=== PATIENT | male | born 1975 | race Caucasian/White ===

== ENCOUNTER 2024-07-06 07:52 | Inpatient (IN) | payer MEDICAID, SELFPAY ==
[2024-07-06] VITALS (16 sets, daily range): BP systolic 121–170; BP diastolic 75–98; PULSE 85–112; RESP 17–38; TEMP 36.4–37.1; O2SAT 91–96; BMI 32.5
--- NOTE | 2024-07-06 08:19 | ED_ITS ---
HPI - Chest Pain 2 General: Chief Complaint: Chest Pain Stated Complaint: sob CP Time Seen by Provider: 07/06/24 07:53 History of Present Illness: 49-year-old male presents emergency room complaining of right-sided pain that began last night around 2 AM today, he has been nauseous and had some vomiting denies any medic easy melena hematemesis coffee-ground emesis. Worsening takes a brief deep breath. No fevers sweats or chills she is mildly tachycardic with oxygen sats all normal. He is diabetic no history of coronary disease no previous abdominal surgeries. Associated symptoms: Reports abdominal pain, nausea and vomiting; Deny dyspnea or fever(s) Related Data Home Medications Medication Instructions Recorded Confirmed escitalopram oxalate 20 mg tablet 20 mg PO DAILY 07/06/24 07/06/24 dapagliflozin propanediol 10 mg 10 mg PO DAILY 07/07/24 07/07/24 tablet Allergies Allergy/AdvReac Type Severity Reaction Status Date / Time Sulfa (Sulfonamide Allergy ALGY-Hives Verified 05/31/23 14:58 Antibiotics) Review of Systems 2 Const: Denies: fever(s) or chills Card: Denies: chest pain Resp: Denies: dyspnea GI: Reports: abdominal pain, nausea and vomiting; Denies: hematemesis, hematochezia or melena : Denies: dysuria, urinary frequency or urinary urgency Musc: Denies: neck pain or back pain Skin/Breast: Denies: rash PFSH ED 2 PFSH: Medical History (Updated 07/09/24 @ 07:01 by Henry Wadsworth DO) Hx of type 2 diabetes mellitus Hx of hyperlipidemia History of anxiety Surgical History (Updated 07/08/24 @ 11:06 by Rosy Hickman MD) Hx of vasectomy 2005 Social History Smoking and tobacco/nicotine status: never used tobacco/nicotine Second hand smoke exposure: No Alcohol intake: never Substance/Drug Use: never Adopted: No Caregiver/support person: No Lives independently: Yes Household members: children Housing: House Marital status: Number of children: 1 Highest education level completed: Associate Degree: Occupational, Technical, Vocational Program service: No Current occupational status: employed Physical Exam 2 Const: GENERAL APPEARANCE: cooperative ORIENTATION/CONSCIOUSNESS: Yes awake, Yes oriented to person, Yes oriented to place and Yes oriented to time HENMT: COMMON NORMALS: normocephalic, atraumatic and hearing grossly normal bilaterally HEAD & SCALP: normocephalic and atraumatic Resp: COMMON NORMALS: No retractions and No use of accessory muscles EFFORT & INSPECTION: Yes tachypneic AUSCULTATION: rhonchi and wheezes Cardio: COMMON NORMALS: regular rate, regular rhythm and No murmurs present (Cardio) RATE: regular rate RHYTHM: regular rhythm GI: COMMON NORMALS: Soft to palpation and No hepatosplenomegaly present A USCULTATION: Yes normoactive bowel sounds PALPATION: Yes Soft to palpation, No Tenderness to palpation present (GI), No Guarding due to palpation present (GI) and Yes No hepatosplenomegaly present Extremity: COMMON NORMALS: normal to inspection, capillary refill normal, no clubbing, cyanosis or edema, no calf tenderness and no pedal edema Neuro: SENSORIUM/ORIENTATION: Yes oriented to person, Yes oriented to place and Yes oriented to time Skin: COMMON NORMALS: no rashes or lesions noted GENERAL SKIN EXAM: no rashes or lesions noted Course 2 Vital Signs: Vital signs: Vital Signs Temperature 98.6 F 07/09/24 04:00 Pulse Rate 86 07/09/24 04:57 Respiratory Rate 17 07/09/24 04:00 Blood Pressure 149/71 07/09/24 04:00 Pulse Oximetry 96 07/09/24 04:00 Oxygen Delivery Me thod Room Air 07/09/24 04:00 MDM - Chest Pain Medical Decision Making Patient presents tachycardic. EKG reviewed no acute ST changes noted. Chest x- ray shows pneumonia with pleural effusion CTA of the chest shows small abscess. No obvious abnormality. Patient has sepsis sepsis protocols initiated. Started on Vanco mycin and Zosyn. Discussed with hospitalist orders written Lab Data 07/09/24 04:02 07/09/24 04:02 Radiology Impressions Chest X-Ray 07/06/24 08:20 IMPRESSION: Jtit-ek-[id number] right lower lobe infiltrate, suggestive of pneumonia with a suspected small right pleural effusion Gallbladder Ultrasound 07/06/24 08:26 IMPRESSION: 1. No evidence of cholelithiasis. 2. Upper limits of normal common bile duct. Correlation with bilirubin levels is suggested. 3. Diffuse fatty infiltration of the liver Chest/Abdomen/Pelvis CT 07/06/24 08:59 IMPRESSION: 1. Moderate right middle lobe consolidation with a central loculated gas and fluid collection extending into the anterior right costophrenic angle. These findings are suspicious for pneumonia and pulmonary abscess however bronchogenic neoplasm cannot be excluded. Correlation with bronchoscopy or short-term follow-up CT of the chest is suggested 2. Mildly prominent right hilar and right superior mediastinal lymph nodes 3. Small non loculated right pleural effusion IMPRESSION: 1. Mild diffuse bladder wall thickening. Clinical and laboratory correlation is suggested to exclude cystitis 2. Fatty infiltration of the liver Chest Ultrasound 07/08/24 08:57 IMPRESSION: Very small RIGHT pleural effusion. Laboratory Results WBC 28.68 10^3/uL (3.29-11.43) H 07/06/24 08:25 RBC 4.74 10^6/uL (3.85-5.65) 07/06/24 08:25 Hgb 14.30 g/dL (11.27-16.99) 07/06/24 08:25 Hct 41.2 % (37-53) 07/06/24 08:25 MCV 86.9 fl (82-101) 07/06/24 08:25 MCH 30.2 pg (27-33) 07/06/24 08:25 MCHC 34.7 g/dL (30-55) 07/06/24 08:25 RDW 11.9 % (12.1-15.1) L 07/06/24 08:25 Plt Count 266 10^3/cmm (157-399) 07/06/24 08:25 MPV 9.0 fL (7.4-10.4) 07/06/24 08:25 Neut % (Auto) 87.9 % 07/06/24 08:25 Lymph % (Auto) 2.1 % 07/06/24 08:25 Miner % (Auto) 8.6 % 07/06/24 08:25 Eos % (Auto) 0.2 % 07/06/24 08:25 Baso % (Auto) 0.2 % 07/06/24 08:25 Neut # (Auto) 25.18 10^3/uL (1.8-7.7) H 07/06/24 08:25 Lymph # (Auto) 0.6 10^3/uL (0.8-4.8) L 07/06/24 08:25 Miner # (Auto) 2.5 10^3/uL (0.2-0.9) H 07/06/24 08:25 Eos # (Auto) 0.1 10^3/uL (0.0-0.8) 07/06/24 08:25 Baso # (Auto) 0.1 10^3/uL (0.0-0.1) 07/06/24 08:25 Nucleated RBC % (auto) 0 % 07/06/24 08:25 Nucleated RBCs # 0.0 /100WBC 07/06/24 08:25 Specimen Type Arterial 07/06/24 09:10 Sample Site Radial, right 07/06/24 09:10 ABG pH 7.42 (7.35-7.45) 07/06/24 09:10 ABG pCO2 34.4 mmHg (35-45) L 07/06/24 09:10 ABG pO2 70.1 mmHg (80.0-100.0) L 07/06/24 09:10 ABG PO2/FiO2 Ratio 333 07/06/24 09:10 ABG HCO3 22.2 mmol/L (22-26) 07/06/24 09:10 ABG O2 Saturation 94.5 07/06/24 09:10 ABG Base Excess -1.7 mmol/L (-2.0-2.0) 07/06/24 09:10 John Test Pos 07/06/24 09:10 A-a O2 Gradient 4.8 mmHg (5-10) L 07/06/24 09:10 Hematocrit 42.5 % (42-52) 07/06/24 09:10 Hgb O2 Saturation 92.2 % (95-100) L 07/06/24 09:10 Carboxyhemoglobin 1.4 %THgb (0.4-20.1) 07/06/24 09:10 Methemoglobin 1.1 % (0.4-1.5) 07/06/24 09:10 Total Hemoglobin 13.9 g/dL (14-18) L 07/06/24 09:10 Sodium 132.0 mmol/L (131-143) 07/06/24 09:10 Potassium 4.2 mmol/L (3.5-5.0) 07/06/24 09:10 Glucose 219.0 mg/dL (70-115) H 07/06/24 09:10 Ionized Calcium 1.1 mmol/L (1.1-1.4) 07/06/24 09:10 O2 Delivery Device Room air 07/06/24 09:10 FiO2 21.0 % 07/06/24 09:10 Public Information Specialist ID [place] 07/06/24 09:10 Sodium 130 mmol/L (136-145) L 07/06/24 08:25 Potassium 4.8 mmol/L (3.5-5.1) 07/06/24 08:25 Chloride 89 mmol/L (98-107) L 07/06/24 08:25 Carbon Dioxide 21 mmol/L (22-29) L 07/06/24 08:25 Anion Gap 24.8 (5-19) H 07/06/24 08:25 BUN 11 mg/dL (6-20) 07/06/24 08:25 Creatinine 0.8 mg/dL (0.7-1.2) 07/06/24 08:25 GFR Calculation 103.6 mL/min (90-130) 07/06/24 08:25 Glucose 264 mg/dL (65-115) H 07/06/24 08:25 Calculated Osmolality 279 mOsm/kg (285-295) L 07/06/24 08:25 Lactic Acid 2.5 mmol/L (0.5-2.2) H 07/06/24 08:25 Calcium 8.8 mg/dL (8.5-10.5) 07/06/24 08:25 Total Bilirubin 1.0 mg/dL (0.15-1.2) 07/06/24 08:25 AST 23 U/L (0-40) 07/06/24 08:25 ALT 36 U/L (0-41) 07/06/24 08:25 Alkaline Phosphatase 116 U/L (40-130) 07/06/24 08:25 Troponin T Baseline 13 ng/L (0-15) 07/06/24 08:25 Troponin T 120 Minute 12.43 ng/L (0-15) 07/06/24 10:02 Delta Troponin T -0.57 ABS# (0-10) L 07/06/24 10:02 C-Reactive Protein 166.5 mg/L (0.0-4.9) H 07/06/24 08:25 Total Protein 7.6 g/dL (6.6-8.7) 07/06/24 08:25 Albumin 3.9 g/dL (3.5-5.2) 07/06/24 08:25 Globulin 3.7 g/dL (1.3-4.6) 07/06/24 08:25 Serum Ketones Negative (Negative) 07/06/24 08:25 Coronavirus (PCR) Negative (Negative) 07/06/24 10:00 Influenza A (PCR) Negative (Negative) 07/06/24 10:00 Influenza Type B (PCR) Negative (Negative) 07/06/24 10:00 RSV (PCR) Negative (Negative) 07/06/24 10:00 All radiology interpretation(s) finalized by discharge Discharge Plan Discharge Patient Disposition: Admitted As Inpatient Admit Provider: Merlin Bains Clinical Impression: Community acquired pneumonia, Lung abscess, Sepsis Condition: Stable Coding Level of Care Code ED [employer] for Librado Nieto
--- NOTE | 2024-07-06 08:20 | ECG_ITS ---
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
--- NOTE | 2024-07-06 08:20 | XRR_ITS ---
PROCEDURE INFORMATION: Exam: XR Chest Exam date and time: 07/06/2024 8:31 AM Age: 49 years old Clinical indication: Chest pressure; Patient HX: Patient states that he started having nausea and vomiting last night, then he developed right sided chest pain and shortness of breath. Patient states that the pain is a 10 out of 10. He is having cold chills and he appears diaphoretic. Patient is alert and oriented, breathing is even and unlabored. TECHNIQUE: Imaging protocol: Radiologic exam of the chest. Views: 1 view. COMPARISON: No relevant prior studies available. FINDINGS: Lungs: There is a polw-yj-odrnukab right lower lobe infiltrate. Pleural spaces: There is a trace right pleural effusion. No pneumothorax is seen. Heart/Mediastinum: Unremarkable. No cardiomegaly. Bones/joints: Unremarkable. XR/XR chest 1V portable [id number] IMPRESSION: Enpj-zz-wjlthcmh right lower lobe infiltrate, suggestive of pneumonia with a suspected small right pleural effusion
--- NOTE | 2024-07-06 08:26 | USR_ITS ---
PROCEDURE INFORMATION: Exam: US Abdomen, Limited; Right Upper Quadrant Exam date and time: 07/06/2024 8:58 AM Age: 49 years old Clinical indication: Abdominal pain; Acute; Additional info: Ruq pain/biliary colic TECHNIQUE: Imaging protocol: Real time ultrasound of the abdomen with image documentation. Limited exam focused on the right upper quadrant. COMPARISON: No relevant prior studies available. FINDINGS: Liver: There is diffuse fatty infiltration of the liver. Gallbladder: Normal. No gallstones. There is no gallbladder wall thickening. Biliary ducts: The common bile duct measures 6 mm and is at the upper limits of normal. Pancreas: Visualized pancreas is unremarkable. Right kidney: Normal. No mass. No hydronephrosis. US/US gall bladder [id number] IMPRESSION: 1. No evidence of cholelithiasis. 2. Upper limits of normal common bile duct. Correlation with bilirubin levels is suggested. 3. Diffuse fatty infiltration of the liver
[2024-07-06 08:35] LABS: Basophils # 0.1 10^3/uL (0.0-0.1); Basophils % 0.2 %; Eosinophils # 0.1 10^3/uL (0.0-0.8); Eosinophils % 0.2 %; Hematocrit 41.2 % (37-53); Lymphocytes # 0.6 10^3/uL (0.8-4.8); Lymphocytes % 2.1 %; Mean Corpuscular HGB Conc 34.7 g/dL (30-55); Mean Corpuscular Hemoglobin 30.2 pg (27-33); Mean Corpuscular Volume 86.9 fl (82-101); Monocytes # 2.5 10^3/uL (0.2-0.9); Monocytes % 8.6 %; Neutrophils # 25.18 10^3/uL (1.8-7.7); Neutrophils % 87.9 %; Nucleated Red Blood Cells % 0 %; Platelet Count 266 10^3/cmm (157-399); Red Blood Count 4.74 10^6/uL (3.85-5.65); Red Cell Distribution Width 11.9 % (12.1-15.1); White Blood Count 28.68 10^3/uL (3.29-11.43)
[2024-07-06] MEDS: morphine 4 mg/mL SDV 1 mL IVP (08:43)
[2024-07-06] MEDS: sodium chloride 0.9% 1,000 ML 999 ML IV (08:44)
[2024-07-06] MEDS: ondansetron 2 mg/ML SDV 2 mL 4 MG IVP (08:44)
[2024-07-06 08:48] LABS: Alanine Aminotransferase 36 U/L (0-41); Albumin Level 3.9 g/dL (3.5-5.2); Alkaline Phosphatase 116 U/L (40-130); Aspartate Amino Transferase 23 U/L (0-40); Blood Urea Nitrogen 11 mg/dL (6-20); Calcium 8.8 mg/dL (8.5-10.5); Carbon Dioxide 21 mmol/L (22-29); Chloride 89 mmol/L (98-107); Creatinine Clr Calc Pharmacy 120.9814; Globulin 3.7 g/dL (1.3-4.6); Glomerular Filtration Rate 103.6 mL/min (90-130); Glucose 264 mg/dL (65-115); Osmolality Calculated 279 mOsm/kg (285-295); Sodium 130 mmol/L (136-145); Total Protein 7.6 g/dL (6.6-8.7)
[2024-07-06 08:49] LABS: Troponin(5th) Baseline 13 ng/L (0-15)
--- NOTE | 2024-07-06 08:59 | CTR_ITS ---
PROCEDURE INFORMATION: Exam: CTA Chest With Contrast Exam date and time: 07/06/2024 9:43 AM Age: 49 years old Clinical indication: Abdominal pain; Generalized; Chest pressure and chest wall pain and on breathing; Additional info: Chest/abd pain TECHNIQUE: Imaging protocol: Computed tomographic angiography of the chest with contrast. Exam focused on the arteries. 3D rendering (Not supervised by radiologist): MIP and/or 3D reconstructed images were created by the technologist. Radiation optimization: All CT scans at this facility use at least one of these dose optimization techniques: automated exposure control; mA and/or kV adjustment per patient size (includes targeted exams where dose is matched to clinical indication); or iterative reconstruction. Contrast material: OMNIPAQUE 350; Contrast volume: 100 ml; Contrast route: INTRAVENOUS (IV); COMPARISON: CR (CHEST, ) 07/06/2024 8:31 AM RADIATION DOSE METRICS: Total DLP (mGy-cm): 1905.04 FINDINGS: Pulmonary arteries: Normal. No pulmonary emboli. Aorta: Unremarkable. No aortic aneurysm. No aortic dissection. Lungs: There is a moderate area of consolidation within the right middle lobe with a central loculated gas and fluid collection with peripheral enhancement within the area of consolidation which measures 4.2 x 2.8 x 2.5 cm. There is also a loculated component of gas and fluid extending into the anterior right costophrenic sulcus. Pleural spaces: There is a small non loculated right pleural effusion. Heart: Unremarkable. No cardiomegaly. No pericardial effusion. Lymph nodes: There are mildly prominent right superior mediastinal and right hilar lymph nodes. A right paratracheal lymph node in the superior mediastinum measures 10 mm in short axis dimension as seen on series 10 image 77. A right hilar lymph node measures 1.6 cm in short axis dimension as seen on series 10, image 172. Bones/joints: Unremarkable. No acute fracture. Soft tissues: There is mild soft tissue thickening noted within the right hilum. PROCEDURE INFORMATION: Exam: CT Abdomen And Pelvis With Contrast Exam date and time: 07/06/2024 9:43 AM Age: 49 years old Clinical indication: Abdominal pain; Generalized; Chest pressure and chest wall pain and on breathing; Additional info: Chest/abd pain TECHNIQUE: Imaging protocol: Computed tomography of the abdomen and pelvis with contrast. Radiation optimization: All CT scans at this facility use at least one of these dose optimization techniques: automated exposure control; mA and/or kV adjustment per patient size (includes targeted exams where dose is matched to clinical indication); or iterative reconstruction. Contrast material: OMNIPAQUE 350; Contrast volume: 100 ml; Contrast route: INTRAVENOUS (IV); COMPARISON: US gall bladder [id number] 07/06/2024 8:58 AM RADIATION DOSE METRICS: Total DLP (mGy-cm): 1905.04 FINDINGS: Liver: There is diffuse fatty infiltration of the liver. No focal liver masses. Gallbladder and biliary ducts: Normal. No calcified stones. No ductal dilation. Pancreas: Normal. No ductal dilation. Spleen: The spleen is unremarkable. A small accessory splenic lobule is noted. Adrenal glands: Normal. No mass. Kidneys and ureters: Normal. No hydronephrosis. Stomach and bowel: Unremarkable. No obstruction. No mucosal thickening. Appendix: No evidence of appendicitis. Intraperitoneal space: Unremarkable. No free air. No significant fluid collection. Vasculature: Unremarkable. No abdominal aortic aneurysm. Lymph nodes: Unremarkable. No enlarged lymph nodes. Urinary bladder: The bladder is partially distended. There is mild diffuse bladder wall thickening. Reproductive: Unremarkable as visualized. Bones/joints: Unremarkable. No acute fracture. Soft tissues: There is a small fat containing left inguinal hernia. CT/CT angio chest w abd pel w con IMPRESSION: 1. Moderate right middle lobe consolidation with a central loculated gas and fluid collection extending into the anterior right costophrenic angle. These findings are suspicious for pneumonia and pulmonary abscess however bronchogenic neoplasm cannot be excluded. Correlation with bronchoscopy or short-term follow-up CT of the chest is suggested 2. Mildly prominent right hilar and right superior mediastinal lymph nodes 3. Small non loculated right pleural effusion IMPRESSION: 1. Mild diffuse bladder wall thickening. Clinical and laboratory correlation is suggested to exclude cystitis 2. Fatty infiltration of the liver
[2024-07-06 09:03] LABS: Anion Gap 24.8 (5-19); Potassium 4.8 mmol/L (3.5-5.1)
[2024-07-06 09:14] LABS: Ketone (Acetest) Serum Negative (Negative); Lactic Sepsis W/Reflex 2.5 mmol/L (0.5-2.2)
[2024-07-06 09:21] LABS: ABG PCO2 34.4 mmHg (35-45); ABG PH Result 7.42 (7.35-7.45); Alveolar-Arterial Oxygen Gradi 4.8 mmHg (5-10); Arterial Blood Gas Hematocrit 42.5 % (42-52); Base Excess ABG -1.7 mmol/L (-2.0-2.0); Blood Gas Allen Test Pos; Blood Gas Operator Identificat WALCI; Blood Gas Sample Site Radial, right; Blood Gas Sample Type Arterial; Carboxyhemoglobin 1.4 %THgb (0.4-20.1); HCO3 ABG 22.2 mmol/L (22-26); HGB O2 Sat 92.2 % (95-100); Ionized Calcium Level - ABG 1.1 mmol/L (1.1-1.4); Methemoglobin 1.1 % (0.4-1.5); Oxygen Device ROOM AIR; Oxygen Saturation ABG 94.5; PO2 ABG 70.1 mmHg (80.0-100.0); PO2 FiO2 Ratio Arterial Blood 333; Potassium Level - ABG 4.2 mmol/L (3.5-5.0); Total Hemoglobin 13.9 g/dL (14-18)
[2024-07-06] MEDS: piperacillin-tazobactam 3.375 GM in sodium chloride 0.9% (plus) 50 ML IV ×2 (09:54→20:47)
[2024-07-06] MEDS: iohexol 350 mg/mL 500 mL Btl (per mL) IV (09:57)
[2024-07-06 10:31] LABS: Troponin 5 2HR 12.43 ng/L (0-15)
[2024-07-06 10:33] LABS: Troponin 5 2HR Delta -0.57 ABS# (0-10)
[2024-07-06] MEDS: vancomycin 1,000 MG in sodium chloride 0.9% 250 ML 250 MG IV (10:39)
[2024-07-06 10:47] LABS: Covid PCR NEGATIVE (Negative); Influenza A NEGATIVE (Negative); Influenza B NEGATIVE (Negative); Respiratory Syncytial Virus Ce NEGATIVE (Negative)
[2024-07-06 10:51] LABS: Reflex Lactate Order REFLEX LACTIC ORDERD
[2024-07-06 11:34] LABS: Lactic Acid level (Lactate) 1.8 mmol/L (0.5-2.2)
[2024-07-06] MEDS: HYDROcodone-acetaminophen 5-325 mg Tablet 1 TAB PO (14:03)
[2024-07-06] MEDS: pantoprazole 40 mg SDV IVP (14:04)
[2024-07-06] MEDS: enoxaparin 40 mg/0.4 mL Syringe SUBCUT (14:04)
[2024-07-06] MEDS: sodium chloride 0.9% 1,000 ML 75 ML IV (14:09)
--- NOTE | 2024-07-06 14:20 | ECG_ITS ---
[facility] Test Date: 2024-07-06 Pat Name: Nitesh Naranjo Department: Room: Gender: Male [employer]: : 1975 Requested By: Henry Crouch Order Number: [id number] Reading MD: NINA GARCIA Measurements Intervals [place] Rate: 90 P: 46 [place]: 124 QRS: 18 QRSD: 95 T: 32 QT: 376 QTc: 462 Interpretive Statements SINUS RHYTHM Compared to ECG 07/06/2024 07:57:38 Sinus tachycardia no longer present Short [place] interval no longer present Electronically Signed On 07-07-2024 18:57:22 CDT by NINA GARCIA [email or web address] centerThe [email or web address] beachwood medical centerCar [email or web address]/store/[id number]
[2024-07-06 14:50] LABS: Troponin 5 6HR 12.93 ng/L (0-15)
[2024-07-06 14:51] LABS: Lactate (Lactic Acid level) 3.5 mmol/L (0.5-2.2)
[2024-07-06 14:53] LABS: Troponin 5 6HR Delta -0.07 ng/L (0-12)
--- NOTE | 2024-07-06 16:25 | P.HP_ITS ---
Providers/Chief Complaint 2 Admitting Physician: Merlin Bains DO Primary Care Provider: Sukumar Brooks MD Chief Complaint: sob CP History of Present Illness Nitesh Naranjo is a 49 year old male who presented to the ER today with complaints of right-sided chest pain, fever, chills, nausea/vomiting and fatigue. Patient states that very early in the morning he began feeling poorly. States that he was having fevers and chills, then began having nausea and vomiting. States he was unable to eat or drink much through the night. He says the last thing he had to eat was yesterday evening. He says that he was having a lot of right-sided chest pain, especially when he was taking a deep breath. 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 In the ER, he was noted to be extremely short of breath. He had an elevated respiratory rate as well as an elevated blood pressure. EKG showed sinus tachycardia with short WI interval. No ST-T changes. Chest x-ray did show mild to moderate right lower lobe infiltrate. A CTA of the chest abdomen and pelvis was obtained, with findings of moderate right middle lobe consolidation with a central loculated gas and fluid collection extending into the anterior right costophrenic angle. He had mild prominence of the right hilar region and the right superior mediastinal lymph nodes. In addition there was a small nonloculated right pleural effusion. Radiology felt that the consolidation was consistent with a pneumonia or a pulmonary abscess, but could not completely exclude malignancy. No pulmonary embolism was seen. Patient had also complained of some epigastric pain associated with the nausea, and a gallbladder ultrasound was obtained. There was no evidence of cholelithiasis, and the common bile duct was on the upper limits of normal. Fatty infiltration of the liver was also noted. Labs showed an elevated white count to 28,000. Sodium was low to 130. He had an elevation of his sugars to 264. Lactic acid was elevated to 2.5. Troponins were negative. Respiratory panel was negative for coronavirus, flu, RSV. Patient was admitted to [facility] for workup and treatment of pneumonia. Review of Systems 2 General: Reports: 10 or more systems reviewed and unremarkable except in HPI and below Medications/Allergies Home Medications Medication Instructions Recorded Confirmed Last Taken Type No Known Home Medications 08/02/23 08/02/23 Unknown History Allergies Allergy/AdvReac Type Severity Reaction Status Date / Time Sulfa (Sulfonamide Allergy ALGY-Hives Verified 05/31/23 14:58 Antibiotics) PFSH Acute 2 PFSH: Social History Smoking and tobacco/nicotine status: never used tobacco/nicotine Second hand smoke exposure: No Alcohol intake: never Substance/Drug Use: never Adopted: No Caregiver/support person: No Lives independently: Yes Household members: children Housing: House Marital status: Number of children: 1 Highest education level completed: Associate Degree: Occupational, Technical, Vocational Program service: No Current occupational status: employed Vitals/I&O/Wt Last Vital Signs Temp 97.6 F 07/06/24 16:10 Pulse 90 07/06/24 16:10 Resp 17 07/06/24 16:10 BP 127/78 07/06/24 16:10 Pulse Ox 91 07/06/24 16:10 O2 Del Method Room Air 07/06/24 16:10 07/06/24 07/06/24 07/06/24 06:59 14:59 22:59 Intake Total 4048.78 / 4048.78 Balance 4048.78 / 4048.78 Weight last 48 hrs Weight 202 lb Physical Exam 2 Narrative: General: Cooperative patient in in moderate respiratory distress. HEENT: Normocephalic, Atraumatic. External ears normal. Nasal passages patent without drainage. MMM. Heart: RRR. Resp: Coarse crackles best heard on the right middle lobe. In addition there were fine Rales present bibasilar. Abd: Soft, Non-distended. Mild epigastric tenderness is noted to palpation. Extremities: No edema. Skin: No rash or lesions on exposed areas. Data 07/06/24 08:25 07/06/24 08:25 Micro: Microbiology 07/06/24 10:02 Blood Culture - Preliminary Blood SPECIMEN COLLECTED 07/06/24 10:00 Blood Culture - Preliminary Blood SPECIMEN COLLECTED A&P Assessment and plan (1) Sepsis: Qualifiers: Sepsis type: sepsis due to unspecified organism Sepsis acute organ dysfunction status: with acute organ dysfunction Severe sepsis acute organ dysfunction type: acute respiratory failure Acute respiratory failure type: w ith hypoxia Severe sepsis shock status: without septic shock Qualified Code(s): A41.9 - Sepsis, unspecified organism; R65.20 - Severe sepsis without septic shock; J96.01 - Acute respiratory failure with hypoxia (2) Community acquired pneumonia: Qualifiers: Laterality: right Lung location: middle lobe of lung Qualified Code(s): J18.9 - Pneumonia, unspecified organism (3) Lung abscess: Qualifiers: Pulmonary abscess pneumonia presence: with pneumonia Laterality: right Lung location: middle lobe of lung Qualified Code(s): J85.1 - Abscess of lung with pneumonia (4) Neutrophilic leukocytosis: (5) Hyponatremia: (6) Hyperglycemia: Plan 49-year-old male admitted for right middle lobe pneumonia and probable lung abscess. Admit to med/surg for close inpatient monitoring. WBC count up to 28,000, hyponatremia 130, elevated glucose to 264 on admission. CTA, chest x-ray showed right middle lobe consolidation with possible lung abscess and right pleural effusion. Patient with likely sepsis given his hypoxic presentation, elevated white count, findings on CT consistent with infection/pneumonia. Received vancomycin and Zosyn in the ER. We will continue these antibiotics. Blood cultures are pending. Blood pressures are stable at this time. No indications of septic shock. Lactic acid was initially elevated to 2.5. Patient did receive fluid bolus in the ER and lactate did improve to 1.8. Repeat did show 3.5. Will continue with IVFs for now. Start on Lovenox for VTE ppx. Will start on oral prednisone twice daily. RAAT, O2 protocol. Duonebs q6h. Repeat AM labs. Will provide hydrocodone for pain. Check A1c given his elevated sugars. Will check a procalcitonin and inflammatory markers in the a.m. Will attempt treatment with IV antibiotics initially, but may require interventional radiology or pulmonology to drain abscess. CC diet for now. If he is not diabetic, can switch diet to regular. Zofran for nausea. Code Status: Full IVF: NS@125 DVT PPx: Lovenox GI PPx: Protonix ABx: Vancomycin, Zosyn Diet: Consistent carb Discharge plan: Home when appropriate Attestations 2 Medical Necessity Statement*: Will needed patient monitoring and treatment of sepsis, pneumonia, IV fluids, IV antibiotics, labs, respiratory support and discharge planning. Coding Level of Care Code Acute Code for Chg Fwd High MDM includes number and complexity of problems actively addressed during encounter, amount and/or complexity of data reviewed/ordered and described risk of complication, morbidity or mortality of management as documented Diagnoses Sepsis with acute hypoxic respiratory failure without septic shock, due to unspecified organism A41.9; R65.20; J96.01 Sepsis type: sepsis due to unspecified organism Sepsis acute organ dysfunction status: with acute organ dysfunction Severe sepsis acute organ dysfunction type: acute respiratory failure Acute respiratory failure type: with hypoxia Severe sepsis shock status: without septic shock Community acquired pneumonia of right middle lobe of lung J18.9 Laterality: right Lung location: middle lobe of lung Abscess of middle lobe of right lung with pneumonia J85.1 Pulmonary abscess pneumonia presence: with pneumonia Laterality: right Lung location: middle lobe of lung Neutrophilic leukocytosis D72.9 Hyponatremia E87.1 Hyperglycemia R73.9
[2024-07-06 16:40] LABS: Glucose Point of Care 218 mg/dL (70-110)
[2024-07-06 17:09] LABS: C Reactive Protein 166.5 mg/L (0.0-4.9)
--- NOTE | 2024-07-06 17:32 | P.PHAVANC_ITS ---
Vancomycin Goal - Goal Vancomycin Goal:: 15-20 mg/L Vancomycin Indication:: Pneumonia - Therapy Current therapy:: Pip/Tazo (3.375 GM Q8H) Day of therpy:: Day [1]of [] . Actual body weight (kg): 91.626 kg [place] body weight: 63.8 Dosing weight (kg): 91.626 - Data Labs: WBC 28.68 10^3/uL (3.29-11.43) H 07/06/24 08:25 RBC 4.74 10^6/uL (3.85-5.65) 07/06/24 08:25 Hgb 14.30 g/dL (11.27-16.99) 07/06/24 08:25 Hct 41.2 % (37-53) 07/06/24 08:25 MCV 86.9 fl (82-101) 07/06/24 08:25 MCH 30.2 pg (27-33) 07/06/24 08:25 MCHC 34.7 g/dL (30-55) 07/06/24 08:25 RDW 11.9 % (12.1-15.1) L 07/06/24 08:25 Sodium 130 mmol/L (136-145) L 07/06/24 08:25 Potassium 4.8 mmol/L (3.5-5.1) 07/06/24 08:25 Chloride 89 mmol/L (98-107) L 07/06/24 08:25 Carbon Dioxide 21 mmol/L (22-29) L 07/06/24 08:25 Anion Gap 24.8 (5-19) H 07/06/24 08:25 BUN 11 mg/dL (6-20) 07/06/24 08:25 Creatinine 0.8 mg/dL (0.7-1.2) 07/06/24 08:25 GFR Calculation 103.6 mL/min (90-130) 07/06/24 08:25 Last dialysis session:: N/A Drug administration history:: Medications Piperacillin Sod/Tazobactam (Sod 3.375 gm/ Sodium Chloride) 50 mls @ 12.5 mls/hr IV Q8H JOHN; Protocol Vancomycin HCl (Vancocin) 1,250 mg in 250 mls @ 166.667 mls/hr IV Q8H JOHN Discontinued Medications Vancomycin HCl 1,000 mg/ (Sodium Chloride) 250 mls @ 250 mls/hr IV ONCE ONE; Protocol Stop: 07/06/24 11:26 Last Admin: 07/06/24 11:58 Dose: Infused Treatment plan:: new consult Regimen:: Vancomycin 1250mg IVPB q8h Follow up:: Scr daily with AM Labs Vancomycin Trough before 4 th dose Rationale:: Predicted trough to be 18.50
[2024-07-06] MEDS: predniSONE 20 mg Tablet 40 MG PO (17:50)
[2024-07-06] MEDS: vancomycin 1,250 MG/250 ML PIGGYBACK 166.67 MG IV (17:51)
[2024-07-07] VITALS (12 sets, daily range): BP systolic 138–150; BP diastolic 77–85; PULSE 73–102; RESP 16–18; TEMP 36.3–36.9; O2SAT 92–95
[2024-07-07] MEDS: sodium chloride 0.9% 1,000 ML 125 ML IV ×3 (01:17→22:40)
[2024-07-07] MEDS: vancomycin 1,250 MG/250 ML PIGGYBACK 166 MG IV ×3 (02:07→18:37)
[2024-07-07] MEDS: piperacillin-tazobactam 3.375 GM in sodium chloride 0.9% (plus) 50 ML IV ×3 (04:04→20:39)
[2024-07-07 04:17] LABS: Basophils % 0.2 %; Hematocrit 35.3 % (37-53); Lymphocytes # 0.9 10^3/uL (0.8-4.8); Lymphocytes % 5.3 %; Mean Corpuscular HGB Conc 34.6 g/dL (30-55); Mean Corpuscular Hemoglobin 30.9 pg (27-33); Mean Corpuscular Volume 89.4 fl (82-101); Mean Platelet Volume 9.3 fL (7.4-10.4); Monocytes # 1.4 10^3/uL (0.2-0.9); Neutrophils # 14.75 10^3/uL (1.8-7.7); Neutrophils % 85.3 %; Nucleated Red Blood Cells % 0 %; Platelet Count 246 10^3/cmm (157-399); Red Blood Count 3.95 10^6/uL (3.85-5.65); Red Cell Distribution Width 12.1 % (12.1-15.1); White Blood Count 17.28 10^3/uL (3.29-11.43)
[2024-07-07 04:34] LABS: Estmated Average Glucose 169; Hemoglobin A1C 7.5 % (4.0-6.0)
[2024-07-07 04:48] LABS: Alanine Aminotransferase 23 U/L (0-41); Alkaline Phosphatase 89 U/L (40-130); Anion Gap 22.2 (5-19); Aspartate Amino Transferase 16 U/L (0-40); Blood Urea Nitrogen 15 mg/dL (6-20); Calcium 8.2 mg/dL (8.5-10.5); Carbon Dioxide 17 mmol/L (22-29); Chloride 96 mmol/L (98-107); Creatinine Clr Calc Pharmacy 161.3085; Globulin 3.6 g/dL (1.3-4.6); Glomerular Filtration Rate 144.4 mL/min (90-130); Glucose 137 mg/dL (65-115); Osmolality Calculated 275 mOsm/kg (285-295); Potassium 4.2 mmol/L (3.5-5.1); Sodium 131 mmol/L (136-145); Thyroid Stimulating Hormone 1.06 uIU/mL (0.27-4.20); Total Bilirubin 0.6 mg/dL (0.15-1.2); Total Protein 6.6 g/dL (6.6-8.7)
[2024-07-07 04:59] LABS: Cholesterol 136 mg/dL (0-200); HDL Cholesterol 34 mg/dL (60-100); LDL Cholesterol Calculated 68 mg/dL (50-129); Triglycerides 168 mg/dL (0-150)
[2024-07-07] MEDS: predniSONE 20 mg Tablet 40 MG PO ×2 (08:56→18:36)
[2024-07-07] MEDS: ipratropium-albuterol 3 mL Neb INHALATION (11:08)
[2024-07-07] MEDS: HYDROcodone-acetaminophen 5-325 mg Tablet 1 TAB PO (11:15)
[2024-07-07] MEDS: guaiFENesin 600 mg Tablet PO ×2 (11:15→18:37)
[2024-07-07] MEDS: escitalopram 10 mg Tablet 20 MG PO (11:34)
[2024-07-07] MEDS: pantoprazole 40 mg SDV IVP (11:35)
[2024-07-07] MEDS: enoxaparin 40 mg/0.4 mL Syringe SUBCUT (11:35)
--- NOTE | 2024-07-07 18:20 | P.PN_ITS ---
Subjective 2 Subjective: Continues to have some mild Chest pain with coughing. No other events overnight. Reports feeling much improved this morning. States that he is breathing better. Medications: Reviewed: Yes Vitals/I&O/Wt Last Vital Signs Temp 97.8 F 07/07/24 15:24 Pulse 101 H 07/07/24 15:24 Resp 16 07/07/24 15:24 BP 150/84 07/07/24 15:24 Pulse Ox 92 07/07/24 15:24 O2 Del Method Room Air 07/07/24 15:24 07/07/24 07/07/24 07/07/24 06:59 14:59 22:59 Intake Total 1660.417 / 6682.947 3595.833 / 3595.833 1200 / 4795.833 Balance 1660.417 / 6682.947 3595.833 / 3595.833 1200 / 4795.833 Weight last 48 hrs Weight 202 lb Weight 202 lb Physical Exam 2 Narrative: General: Cooperative patient in in moderate respiratory distress. HEENT: Normocephalic, Atraumatic. External ears normal. Nasal passages patent without drainage. MMM. Heart: RRR. Resp: Coarse crackles best heard on the right middle lobe. In addition there were fine Rales present bibasilar. Abd: Soft, Non-distended. Mild epigastric tenderness is noted to palpation. Extremities: No edema. Skin: No rash or lesions on exposed areas. Data 07/07/24 03:55 07/07/24 03:55 Micro: Microbiology 07/06/24 10:02 Blood Culture - Preliminary Blood NEGATIVE TO DATE 07/06/24 10:00 Blood Culture - Preliminary Blood NEGATIVE TO DATE A&P Assessment and plan (1) Sepsis: Qualifiers: Sepsis type: sepsis due to unspecified organism Sepsis acute organ dysfunction status: with acute organ dysfunction Severe sepsis acute organ dysfunction type: acute respiratory failure Acute respiratory failure type: w ith hypoxia Severe sepsis shock status: without septic shock Qualified Code(s): A41.9 - Sepsis, unspecified organism; R65.20 - Severe sepsis without septic shock; J96.01 - Acute respiratory failure with hypoxia (2) Community acquired pneumonia: Qualifiers: Laterality: right Lung location: middle lobe of lung Qualified Code(s): J18.9 - Pneumonia, unspecified organism (3) Lung abscess: Qualifiers: Pulmonary abscess pneumonia presence: with pneumonia Laterality: right Lung location: middle lobe of lung Qualified Code(s): J85.1 - Abscess of lung with pneumonia (4) Neutrophilic leukocytosis: (5) Hyponatremia: (6) Hyperglycemia: Plan 49-year-old male admitted for right middle lobe pneumonia and probable lung abscess. Continue close inpatient monitoring. WBC count improved to 17. Sodium currently at 131. CTA, chest x-ray showed right middle lobe consolidation with possible lung abscess and right pleural effusion. Patient with likely sepsis given his hypoxic presentation, elevated white count, findings on CT consistent with infection/pneumonia. Continue vancomycin, Zosyn, prednisone. Blood cultures are pending. Currently negative today. Blood pressures are stable at this time. No indications of septic shock. Continue Lovenox for VTE prophylaxis. RAAT, O2 protocol. Duonebs q6h. Repeat AM labs. Hydrocodone for pain. Procalcitonin was elevated to 4.5. CRP was 166. Plan to recheck in a couple days. Consider interventional radiology versus pulmonology if lung abscess does not resolve with antibiotics. He does clinically appear to be improving however. A1c is 7.5. He is on fark [employer] at home. This was restarted. Zofran for nausea. He is tolerating moderate oral intake. Can likely discontinue his IV fluids tomorrow. Code Status: Full IVF: NS@125 DVT PPx: Lovenox GI PPx: Protonix ABx: Vancomycin, Zosyn Diet: Consistent carb Discharge plan: Home when appropriate Attestations 2 Medical Necessity Statement*: Will need continued inpatient stay and treatment of sepsis, pneumonia with IV fluids, IV antibiotics, labs, respiratory support and discharge planning. Coding Level of Care Code Acute Code for Chg Fwd Moderate MDM includes number and complexity of problems actively addressed during encounter, amount and/or complexity of data reviewed/ordered and described risk of complication, morbidity or mortality of management as documented Diagnoses Sepsis with acute hypoxic respiratory failure without septic shock, due to unspecified organism A41.9; R65.20; J96.01 Sepsis type: sepsis due to unspecified organism Sepsis acute organ dysfunction status: with acute organ dysfunction Severe sepsis acute organ dysfunction type: acute respiratory failure Acute respiratory failure type: with hypoxia Severe sepsis shock status: without septic shock Community acquired pneumonia of right middle lobe of lung J18.9 Laterality: right Lung location: middle lobe of lung Abscess of middle lobe of right lung with pneumonia J85.1 Pulmonary abscess pneumonia presence: with pneumonia Laterality: right Lung location: middle lobe of lung Neutrophilic leukocytosis D72.9 Hyponatremia E87.1 Hyperglycemia R73.9
[2024-07-07 18:24] LABS: Vancomycin Trough 14.2 ug/mL (10-15)
[2024-07-07] MEDS: ALPRAZolam 0.5 mg Tablet 0.25 MG PO (20:39)
[2024-07-08] VITALS (8 sets, daily range): BP systolic 136–162; BP diastolic 82–86; PULSE 61–87; RESP 17–18; TEMP 36.4–36.6; O2SAT 94–98
[2024-07-08] MEDS: vancomycin 1,250 MG/250 ML PIGGYBACK 166 MG IV (02:04)
[2024-07-08] MEDS: piperacillin-tazobactam 3.375 GM in sodium chloride 0.9% (plus) 50 ML IV ×3 (04:00→20:31)
[2024-07-08] MEDS: benzonatate 100 mg Capsule PO (04:00)
[2024-07-08 04:35] LABS: Basophils % 0.1 %; Hematocrit 38.7 % (37-53); Lymphocytes # 0.7 10^3/uL (0.8-4.8); Mean Corpuscular HGB Conc 33.1 g/dL (30-55); Mean Corpuscular Volume 90.8 fl (82-101); Mean Platelet Volume 9.2 fL (7.4-10.4); Monocytes # 0.9 10^3/uL (0.2-0.9); Monocytes % 6.6 %; Neutrophils # 12.24 10^3/uL (1.8-7.7); Neutrophils % 87.1 %; Nucleated Red Blood Cells % 0 %; Platelet Count 282 10^3/cmm (157-399); Red Blood Count 4.26 10^6/uL (3.85-5.65); Red Cell Distribution Width 12.4 % (12.1-15.1); White Blood Count 14.06 10^3/uL (3.29-11.43)
[2024-07-08 04:57] LABS: Alanine Aminotransferase 22 U/L (0-41); Alkaline Phosphatase 101 U/L (40-130); Anion Gap 18.3 (5-19); Aspartate Amino Transferase 12 U/L (0-40); Blood Urea Nitrogen 16 mg/dL (6-20); Calcium 8.7 mg/dL (8.5-10.5); Carbon Dioxide 19 mmol/L (22-29); Chloride 100 mmol/L (98-107); Creatinine Clr Calc Pharmacy 161.3085; Glomerular Filtration Rate 144.4 mL/min (90-130); Glucose 235 mg/dL (65-115); Osmolality Calculated 285 mOsm/kg (285-295); Potassium 4.3 mmol/L (3.5-5.1); Sodium 133 mmol/L (136-145); Total Bilirubin 0.3 mg/dL (0.15-1.2)
[2024-07-08] MEDS: guaiFENesin 600 mg Tablet PO ×2 (08:10→18:04)
[2024-07-08] MEDS: escitalopram 10 mg Tablet 20 MG PO (08:10)
[2024-07-08] MEDS: predniSONE 20 mg Tablet 40 MG PO (08:10)
[2024-07-08] MEDS: sodium chloride 0.9% 1,000 ML 125 ML IV (08:40)
--- NOTE | 2024-07-08 08:57 | US_ITS ---
WS: [id number] Ultrasound chest. HISTORY: Evaluate pleural fluid. No significant LEFT pleural effusion is identified. There is a very tiny RIGHT pleural effusion prese nt. Insufficient for thoracentesis. US/US chest [id number] IMPRESSION: Very small RIGHT pleural effusion.
[2024-07-08 09:38] LABS: Lactate Dehydrogenase 138 U/L (135-225)
--- NOTE | 2024-07-08 10:05 | PC.CHAP ---
Pastoral Care Encounter/Spiritual Assessment Type of Contact [] Declined fish skinning machine feeder visit [] Patient/Family/Request visit [] Outpatient visit [] Follow-up visit [] Physician referral [] Code/Alert [x] Routine visit [] Staff referral [] Actively dying [] Patient sleeping [] Family support [] [] Out of room [] Palliative care [] [] Receiving care in room [] Pre-surgical visit [] Trauma [] Long length of stay [] ICU visit [] Other: Relational/Emotional Strength [] Patient feels connected with others/family/visitors/staff [] Distress [] Loneliness/isolation [] Abandonment Spirituality of Patient [x] Person of Ashley [] Attends Roman Catholic of their Ashley [x] Believes in Prayer [] Reads Bible or Sabianist materials [] There are Spiritual issues to be addressed Train Clerk Interventions [x] Prayer [x] Active listening [] Non-anxious presence [] Spiritual/emotional support [] Crisis/trauma care [] Spiritual counseling [] Bereavement support [] Provided bereavement packet [x] Provided Bible/devotional materials [] Provided toy/stuffed animal, coloring book to patient or family member [] Provided Communion [] Anointing/[place] [] Salvation [x] Completed spiritual assessment [] Other: Impact on Illness or Injury [] Angry [] Fearful [] Anxious [] Often cries [] Exhaustion [] Unable to work [] Unable to attend temple [] Unable to walk/stand [] Unable to read [] Unable to drive [] Unable to eat/drink [] Unable to sleep [] Unable to be with family [] Patient intubated [] Other: Summary Time spent with patient 5 min
[2024-07-08] MEDS: vancomycin 1,500 MG/300 ML PIGGYBACK 200 MG IV ×2 (10:54→18:04)
--- NOTE | 2024-07-08 11:02 | P.PN_ITS ---
Subjective 2 Subjective: As per ultrasound there is not enough fluid to be drained Patient endorsing feeling better Currently on room air Productive cough Will request sputum sample White count 14,000 Vitals/I&O/Wt Last Vital Signs Temp 97.6 F 07/08/24 07:46 Pulse 61 07/08/24 07:46 Resp 18 07/08/24 07:46 BP 150/86 07/08/24 07:46 Pulse Ox 96 07/08/24 07:46 O2 Del Method Room Air 07/08/24 07:46 07/07/24 07/08/24 07/08/24 22:59 06:59 14:59 Intake Total 3350 / 6945.833 2575 / 9520.833 1105 / 1105 Balance 3350 / 6945.833 2575 / 9520.833 1105 / 1105 Weight last 48 hrs Weight 91.626 kg Weight 91.626 kg Physical Exam 2 Narrative: Patient is awake and alert Complaining of shortness of breath on exertion Currently afebrile Hypertensive Doing well on room air Pleasant cooperative Nonfocal neuroexam Bilateral bedside without active wheezing 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 Data 07/08/24 04:11 07/08/24 04:11 Micro: Microbiology 07/06/24 10:02 Blood Culture - Preliminary Blood NEGATIVE TO DATE 07/06/24 10:00 Blood Culture - Preliminary Blood NEGATIVE TO DATE A&P Assessment and plan (1) Hyperglycemia: (2) Hyponatremia: (3) Neutrophilic leukocytosis: (4) Sepsis: Qualifiers: Sepsis type: sepsis due to unspecified organism Sepsis acute organ dysfunction status: with acute organ dysfunction Severe sepsis acute organ dysfunction type: acute respiratory failure Acute respiratory failure type: w ith hypoxia Severe sepsis shock status: without septic shock Qualified Code(s): A41.9 - Sepsis, unspecified organism; R65.20 - Severe sepsis without septic shock; J96.01 - Acute respiratory failure with hypoxia (5) Community acquired pneumonia: Qualifiers: Laterality: right Lung location: middle lobe of lung Qualified Code(s): J18.9 - Pneumonia, unspecified organism (6) Lung abscess: Qualifiers: Pulmonary abscess pneumonia presence: with pneumonia Laterality: right Lung location: middle lobe of lung Qualified Code(s): J85.1 - Abscess of lung with pneumonia Plan Lung abscess Continue antibiotics at this point He is A-fib diagnosis active fever Doing well on room air As per the ultrasound there is not enough fluid to be drained Patient will need pulmonary referral outpatient as well Likely will be discharged in next 24 hours if vital signs keep trending down DVT prophylaxis Lovenox Will request sputum sample Discontinue IV fluids Attestations 2 Medical Necessity Statement*: Discharge likely tomorrow Diagnoses Hyperglycemia R73.9 Hyponatremia E87.1 Neutrophilic leukocytosis D72.9 Sepsis with acute hypoxic respiratory failure without septic shock, due to unspecified organism A41.9; R65.20; J96.01 Sepsis type: sepsis due to unspecified organism Sepsis acute organ dysfunction status: with acute organ dysfunction Severe sepsis acute organ dysfunction type: acute respiratory failure Acute respiratory failure type: with hypoxia Severe sepsis shock status: without septic shock Community acquired pneumonia of right middle lobe of lung J18.9 Laterality: right Lung location: middle lobe of lung Abscess of middle lobe of right lung with pneumonia J85.1 Pulmonary abscess pneumonia presence: with pneumonia Laterality: right Lung location: middle lobe of lung
[2024-07-08] MEDS: insulin lispro 100 unit/1 mL SUBCUT ×2 (12:18→18:10)
[2024-07-08] MEDS: enoxaparin 40 mg/0.4 mL Syringe SUBCUT (12:19)
[2024-07-08] MEDS: pantoprazole 40 mg SDV IVP (12:19)
[2024-07-08] MEDS: HYDROcodone-acetaminophen 5-325 mg Tablet 1 TAB PO (12:36)
[2024-07-08] MEDS: fluticasone nasal spray 16gm Btl 2 SPRAY NASAL (16:22)
[2024-07-08] MEDS: loratadine 10 mg Tablet PO (16:24)
[2024-07-09] VITALS (10 sets, daily range): BP systolic 116–154; BP diastolic 64–80; PULSE 58–98; RESP 16–18; TEMP 36.3–37; O2SAT 94–96
[2024-07-09] MEDS: vancomycin 1,500 MG/300 ML PIGGYBACK 200 MG IV ×3 (03:10→18:37)
[2024-07-09] MEDS: HYDROcodone-acetaminophen 5-325 mg Tablet 1 TAB PO ×2 (03:14→18:22)
[2024-07-09 04:33] LABS: Basophils % 0.2 %; Eosinophils % 0.1 %; Hematocrit 34.7 % (37-53); Lymphocytes # 1.2 10^3/uL (0.8-4.8); Lymphocytes % 10.4 %; Mean Corpuscular HGB Conc 34.3 g/dL (30-55); Mean Corpuscular Hemoglobin 29.9 pg (27-33); Mean Corpuscular Volume 87.2 fl (82-101); Mean Platelet Volume 9.4 fL (7.4-10.4); Neutrophils # 9.02 10^3/uL (1.8-7.7); Neutrophils % 79.1 %; Nucleated Red Blood Cells % 0 %; Platelet Count 292 10^3/cmm (157-399); Red Blood Count 3.98 10^6/uL (3.85-5.65); Red Cell Distribution Width 12.1 % (12.1-15.1); White Blood Count 11.41 10^3/uL (3.29-11.43)
[2024-07-09 04:50] LABS: Alanine Aminotransferase 20 U/L (0-41); Albumin Level 3.1 g/dL (3.5-5.2); Alkaline Phosphatase 79 U/L (40-130); Aspartate Amino Transferase 16 U/L (0-40); Blood Urea Nitrogen 18 mg/dL (6-20); Calcium 8.5 mg/dL (8.5-10.5); Carbon Dioxide 22 mmol/L (22-29); Chloride 98 mmol/L (98-107); Creatinine Clr Calc Pharmacy 138.2644; Globulin 3.5 g/dL (1.3-4.6); Glomerular Filtration Rate 120.9 mL/min (90-130); Glucose 145 mg/dL (65-115); Osmolality Calculated 278 mOsm/kg (285-295); Sodium 132 mmol/L (136-145); Total Bilirubin 0.3 mg/dL (0.15-1.2); Total Protein 6.6 g/dL (6.6-8.7)
[2024-07-09 04:56] LABS: Anion Gap 15.7 (5-19); Potassium 3.7 mmol/L (3.5-5.1)
[2024-07-09] MEDS: piperacillin-tazobactam 3.375 GM in sodium chloride 0.9% (plus) 50 ML IV ×3 (05:02→21:15)
[2024-07-09 08:15] LABS: Glucose Point of Care 170 mg/dL (70-110)
[2024-07-09] MEDS: fluticasone nasal spray 16gm Btl 2 SPRAY NASAL (08:30)
[2024-07-09] MEDS: escitalopram 10 mg Tablet 20 MG PO (08:31)
[2024-07-09] MEDS: insulin lispro 100 unit/1 mL SUBCUT ×3 (08:31→18:18)
[2024-07-09] MEDS: guaiFENesin 600 mg Tablet PO ×2 (08:31→18:18)
[2024-07-09] MEDS: loratadine 10 mg Tablet PO (08:31)
[2024-07-09 10:50] LABS: Vancomycin Trough 19.4 ug/mL (10-15)
[2024-07-09 11:29] LABS: Glucose Point of Care 158 mg/dL (70-110)
--- NOTE | 2024-07-09 11:43 | CT_ITS ---
WS: [id number] CT CHEST TECHNIQUE: Contrast enhanced CT of the chest with coronal and sagittal reformatted images. CLINICAL INFORMATION: lung abscess vs empyema COMPARISON: None. DLP: 611.[address] scans at [facility] use at least one of these dose optimization techniques: automated e xposure control; mA and/or kV adjustment per patient size (includes targeted exams where dose is matc hed to clinical indication); or iterative reconstruction. FINDINGS: Shallow inspiration. Small RIGHT pleural effusion. Cavitating RIGHT middle lobe mass with air-fluid l evels extending to the pleura. This is not significantly changed compared to the prior examination on 07/06/2024 and suspicious for abscess. Cavitating bronchogenic neoplasm is an additional consideration . Recommend further evaluation with bronchoscopy. LEFT lung is well aerated. Prominent RIGHT mediasti nal lymph nodes are unchanged. Largest measures approximately 12 mm. Adrenal glands are normal. Tiny esophageal hiatal hernia. Food products in the stomach. Small splenul e. CT/CT chest w con* [id number] IMPRESSION: 1. RIGHT middle lobe cavitating mass suspicious for abscess or possibly cavita ting bronchogenic neoplasm is not significantly changed compared to previous. R ecommend further evaluation with bronchoscopy. 2. Small RIGHT pleural effusion. 3. Few enlarged RIGHT paratracheal lymph nodes are unchanged. 4. No other significant changes.
--- NOTE | 2024-07-09 11:57 | P.PN_ITS ---
Subjective 2 Subjective: Patient is stating that his voice is a bit more hoarse today otherwise no worsening of pain He is still on room air, afebrile I have tried to get in touch with [facility] transfer line did not have any beds available My concern is related to empyema development which needs to be drained Vitals/I&O/Wt Last Vital Signs Temp 97.4 F L 07/09/24 11:22 Pulse 98 07/09/24 11:22 Resp 18 07/09/24 11:22 BP 154/64 07/09/24 11:22 Pulse Ox 94 07/09/24 11:22 O2 Del Method Room Air 07/09/24 11:22 07/08/24 07/09/24 07/09/24 22:59 06:59 14:59 Intake Total 1190 / 4075 590 / 4665 290 / 290 Balance 1190 / 4075 590 / 4665 290 / 290 Weight last 48 hrs Weight 90.809 kg Weight 91.626 kg Physical Exam 2 Narrative: Patient is awake and alert Currently room air Afebrile Hypertensive S1, S2 no tachycardia Euvolemic Eating breakfast Rhonchi without respiratory distress Data 07/09/24 04:02 07/09/24 04:02 A&P Assessment and plan (1) Hyperglycemia: (2) Hyponatremia: (3) Neutrophilic leukocytosis: (4) Sepsis: Qualifiers: Sepsis type: sepsis due to unspecified organism Sepsis acute organ dysfunction status: with acute organ dysfunction Severe sepsis acute organ dysfunction type: acute respiratory failure Acute respiratory failure type: w ith hypoxia Severe sepsis shock status: without septic shock Qualified Code(s): A41.9 - Sepsis, unspecified organism; R65.20 - Severe sepsis without septic shock; J96.01 - Acute respiratory failure with hypoxia (5) Community acquired pneumonia: Qualifiers: Laterality: right Lung location: middle lobe of lung Qualified Code(s): J18.9 - Pneumonia, unspecified organism (6) Lung abscess: Qualifiers: Pulmonary abscess pneumonia presence: with pneumonia Laterality: right Lung location: middle lobe of lung Qualified Code(s): J85.1 - Abscess of lung with pneumonia Plan I will repeat CT scan of chest with contrast to evaluate for development of empyema Patient is getting treated for lung abscess with antibiotics he is afebrile no signs of worsening of leukocytosis I would like patient to get evaluated for development of empyema, has not been accepted by [facility] because they are capped at this point, For now I am continue antibiotics Hyperglycemia has improved Will add losartan for hypertension Full code Consistent carb diet Attestations 2 Medical Necessity Statement*: Continue medical management Diagnoses Hyperglycemia R73.9 Hyponatremia E87.1 Neutrophilic leukocytosis D72.9 Sepsis with acute hypoxic respiratory failure without septic shock, due to unspecified organism A41.9; R65.20; J96.01 Sepsis type: sepsis due to unspecified organism Sepsis acute organ dysfunction status: with acute organ dysfunction Severe sepsis acute organ dysfunction type: acute respiratory failure Acute respiratory failure type: with hypoxia Severe sepsis shock status: without septic shock Community acquired pneumonia of right middle lobe of lung J18.9 Laterality: right Lung location: middle lobe of lung Abscess of middle lobe of right lung with pneumonia J85.1 Pulmonary abscess pneumonia presence: with pneumonia Laterality: right Lung location: middle lobe of lung
[2024-07-09] MEDS: iohexol 350 mg/mL 500 mL Btl (per mL) IV (12:31)
[2024-07-09] MEDS: losartan 50 mg Tablet 25 MG PO (12:43)
[2024-07-09] MEDS: pantoprazole 40 mg SDV IVP (12:44)
[2024-07-09] MEDS: enoxaparin 40 mg/0.4 mL Syringe SUBCUT (12:44)
[2024-07-09 16:52] LABS: Glucose Point of Care 298 mg/dL (70-110)
[2024-07-09 20:38] LABS: Glucose Point of Care 97 mg/dL (70-110)
[2024-07-10] VITALS (8 sets, daily range): BP systolic 143–164; BP diastolic 74–89; PULSE 64–84; RESP 16–18; TEMP 36.8–36.9; O2SAT 93–97
[2024-07-10] MEDS: HYDROcodone-acetaminophen 5-325 mg Tablet 1 TAB PO (01:10)
[2024-07-10] MEDS: vancomycin 1,500 MG/300 ML PIGGYBACK 200 MG IV (02:10)
[2024-07-10] MEDS: piperacillin-tazobactam 3.375 GM in sodium chloride 0.9% (plus) 50 ML IV (04:49)
[2024-07-10 05:09] LABS: Basophils # 0.1 10^3/uL (0.0-0.1); Basophils % 0.7 %; Eosinophils # 0.1 10^3/uL (0.0-0.8); Eosinophils % 1.1 %; Hematocrit 39.6 % (37-53); Lymphocytes # 1.4 10^3/uL (0.8-4.8); Lymphocytes % 11.5 %; Mean Corpuscular HGB Conc 33.8 g/dL (30-55); Mean Corpuscular Hemoglobin 30.2 pg (27-33); Mean Corpuscular Volume 89.4 fl (82-101); Mean Platelet Volume 8.9 fL (7.4-10.4); Monocytes # 1.3 10^3/uL (0.2-0.9); Monocytes % 10.8 %; Neutrophils # 8.85 10^3/uL (1.8-7.7); Neutrophils % 72.3 %; Nucleated Red Blood Cells % 0.2 %; Platelet Count 326 10^3/cmm (157-399); Red Blood Count 4.43 10^6/uL (3.85-5.65); Red Cell Distribution Width 12.1 % (12.1-15.1); White Blood Count 12.22 10^3/uL (3.29-11.43)
[2024-07-10 05:27] LABS: Lactate Dehydrogenase 201 U/L (135-225)
[2024-07-10 05:30] LABS: Blood Urea Nitrogen 16 mg/dL (6-20); Calcium 8.6 mg/dL (8.5-10.5); Carbon Dioxide 24 mmol/L (22-29); Chloride 99 mmol/L (98-107); Glomerular Filtration Rate 144.4 mL/min (90-130); Glucose 156 mg/dL (65-115); Osmolality Calculated 282 mOsm/kg (285-295); Sodium 134 mmol/L (136-145)
[2024-07-10 05:32] LABS: Anion Gap 14.9 (5-19); Potassium 3.9 mmol/L (3.5-5.1)
[2024-07-10 06:23] LABS: Glucose Point of Care 138 mg/dL (70-110)
[2024-07-10] MEDS: escitalopram 10 mg Tablet 20 MG PO (08:14)
[2024-07-10] MEDS: losartan 50 mg Tablet 25 MG PO (08:14)
[2024-07-10] MEDS: loratadine 10 mg Tablet PO (08:14)
[2024-07-10] MEDS: fluticasone nasal spray 16gm Btl 2 SPRAY NASAL (08:15)
[2024-07-10] MEDS: guaiFENesin 600 mg Tablet PO (08:15)
--- NOTE | 2024-07-10 11:26 | PM.DCS ---
Discharge Providers Date of Admission: 07/06/24 10:33 Date of Discharge: July 10, 2024 Attending Provider at Admission: Merlin Bains DO Attending Provider at Discharge: Rosy Hickman MD Primary Care Provider: Sukumar Brooks MD Diagnoses at Discharge Discharge Diagnosis (1) Hyperglycemia: Status: Acute (2) Hyponatremia: Status: Acute (3) Neutrophilic leukocytosis: Status: Acute (4) Sepsis: Status: Acute Qualifiers: Sepsis type: sepsis due to unspecified organism Sepsis acute organ dysfunction status: with acute organ dysfunction Severe sepsis acute organ dysfunction type: acute respiratory failure Acute respiratory failure type: with hypoxia Severe sepsis shock status: without septic shock Qualified Code(s): A41.9 - Sepsis, unspecified organism; R65.20 - Severe sepsis without septic shock; J96.01 - Acute respiratory failure with hypoxia (5) Community acquired pneumonia: Status: Acute Qualifiers: Laterality: right Lung location: middle lobe of lung Qualified Code(s): J18.9 - Pneumonia, unspecified organism (6) Lung abscess: Status: Acute Qualifiers: Pulmonary abscess pneumonia presence: with pneumonia Laterality: right Lung location: middle lobe of lung Qualified Code(s): J85.1 - Abscess of lung with pneumonia Reason for Visit Reason for Visit: sob CP Hospital Course Hospital Course 49-year-old male who chews tobacco, non-smoker, presented with chief complaint of shortness of breath, chills and rigors, in the ER patient was diagnosed with lung abscess, he was put on antibiotics and admitted to the hospital, patient did not spike any fever, remained afebrile, no significant leukocytosis, culture remain negative, we have requested sputum culture, MRSA nares, blood culture remain negative, I repeated his CT scan with contrast which showed bronchogenic cavitary lesion versus lung abscess, we do not have a three dimensional art instructor on-call this week, I discussed this case with [facility] three dimensional art instructor group, they recommended outpatient evaluation and continuation of antibiotics at discharge and repeating CT scan within 3 to 4 weeks. Patient will get referral to [facility] three dimensional art instructor group at the time of discharge. He is being discharged with stable hemodynamics. Patient is not ready to quit chewing tobacco. He was using his tobacco even during hospitalization. His right-sided pleural effusion was not enough to be drained. He is not immunocompromise, does not look toxic, he has not traveled outside [place]. Physical Exam Narrative: Patient is awake and alert Hemodynamically stable GCS 15 On room air Discharge Data Studies Completed and Pending Completed Studies During Hospitalization Category Date Time Status CT chest w con* [id number] Stat Cat Scan 07/09/24 11:[address] abdomen pelvis [CT angio chest w abd pel w Cat Scan 07/06/24 08:59 Completed con] Stat XR chest 1V portable [id number] Stat Exams 07/06/24 08:20 [place] chest [id number] Routine Ultrasound 07/08/24 08:57 Completed US gall bladder [id number] Stat Ultrasound 07/06/24 08:26 Completed Pending at discharge Category Date Time Status Blood Culture Stat Lab 07/06/24 10:02 Results Cell Count w Diff Pleural Fld Routine Lab 07/08/24 08:57 Uncollected Cyto Order Verification Routine Lab 07/08/24 08:58 Ordered Glucose Pleural Fluid Routine Lab 07/08/24 08:57 Uncollected LDH Pleural Fluid Routine Lab 07/08/24 08:57 Uncollected Pleural Fluid Albumin Routine Lab 07/08/24 08:57 Uncollected Pleural [Right Pleural Fluid Analysis] Routine Lab 07/08/24 08:57 Uncollected Sputum Culture and Gram Stain Routine Lab 07/09/24 17:01 Results Total Protein Pleural Fluid Routine Lab 07/08/24 08:57 Uncollected pH Pleural Fluid Routine Lab 07/08/24 08:57 Uncollected Radiology Impressions Chest X-Ray 07/06/24 08:20 IMPRESSION: [id number] right lower lobe infiltrate, suggestive of pneumonia with a suspected small right pleural effusion Gallbladder Ultrasound 07/06/24 08:26 IMPRESSION: 1. No evidence of cholelithiasis. 2. Upper limits of normal common bile duct. Correlation with bilirubin levels is suggested. 3. Diffuse fatty infiltration of the liver Chest/Abdomen/Pelvis CT 07/06/24 08:59 IMPRESSION: 1. Moderate right middle lobe consolidation with a central loculated gas and fluid collection extending into the anterior right costophrenic angle. These findings are suspicious for pneumonia and pulmonary abscess however bronchogenic neoplasm cannot be excluded. Correlation with bronchoscopy or short-term follow-up CT of the chest is suggested 2. Mildly prominent right hilar and right superior mediastinal lymph nodes 3. Small non loculated right pleural effusion IMPRESSION: 1. Mild diffuse bladder wall thickening. Clinical and laboratory correlation is suggested to exclude cystitis 2. Fatty infiltration of the liver Chest Ultrasound 07/08/24 08:57 IMPRESSION: Very small RIGHT pleural effusion. Chest CT 07/09/24 11:43 IMPRESSION: 1. RIGHT middle lobe cavitating mass suspicious for abscess or possibly cavitating bronchogenic neoplasm is not significantly changed compared to previous. Recommend further evaluation with bronchoscopy. 2. Small RIGHT pleural effusion. 3. Few enlarged RIGHT paratracheal lymph nodes are unchanged. 4. No other significant changes. Laboratory Results WBC 12.22 10^3/uL (3.29-11.43) H 07/10/24 04:46 RBC 4.43 10^6/uL (3.85-5.65) 07/10/24 04:46 Hgb 13.40 g/dL (11.27-16.99) 07/10/24 04:46 Hct 39.6 % (37-53) 07/10/24 04:46 MCV 89.4 fl (82-101) 07/10/24 04:46 MCH 30.2 pg (27-33) 07/10/24 04:46 MCHC 33.8 g/dL (30-55) 07/10/24 04:46 RDW 12.1 % (12.1-15.1) 07/10/24 04:46 Plt Count 326 10^3/cmm (157-399) 07/10/24 04:46 MPV 8.9 fL (7.4-10.4) 07/10/24 04:46 Neut % (Auto) 72.3 % 07/10/24 04:46 Lymph % (Auto) 11.5 % 07/10/24 04:46 [place] % (Auto) 10.8 % 07/10/24 04:46 Eos % (Auto) 1.1 % 07/10/24 04:46 Baso % (Auto) 0.7 % 07/10/24 04:46 Neut # (Auto) 8.85 10^3/uL (1.8-7.7) H 07/10/24 04:46 Lymph # (Auto) 1.4 10^3/uL (0.8-4.8) 07/10/24 04:46 [place] # (Auto) 1.3 10^3/uL (0.2-0.9) H 07/10/24 04:46 Eos # (Auto) 0.1 10^3/uL (0.0-0.8) 07/10/24 04:46 Baso # (Auto) 0.1 10^3/uL (0.0-0.1) 07/10/24 04:46 Nucleated RBC % (auto) 0.2 % 07/10/24 04:46 Nucleated RBCs # 0.0 /100WBC 07/10/24 04:46 Specimen Type Arterial 07/06/24 09:10 Sample Site Radial, right 07/06/24 09:10 ABG pH 7.42 (7.35-7.45) 07/06/24 09:10 ABG pCO2 34.4 mmHg (35-45) L 07/06/24 09:10 ABG pO2 70.1 mmHg (80.0-100.0) L 07/06/24 09:10 ABG PO2/FiO2 Ratio 333 07/06/24 09:10 ABG HCO3 22.2 mmol/L (22-26) 07/06/24 09:10 ABG O2 Saturation 94.5 07/06/24 09:10 ABG Base Excess -1.7 mmol/L (-2.0-2.0) 07/06/24 09:10 John Test Pos 07/06/24 09:10 A-a O2 Gradient 4.8 mmHg (5-10) L 07/06/24 09:10 Hematocrit 42.5 % (42-52) 07/06/24 09:10 Hgb O2 Saturation 92.2 % (95-100) L 07/06/24 09:10 Carboxyhemoglobin 1.4 %THgb (0.4-20.1) 07/06/24 09:10 Methemoglobin 1.1 % (0.4-1.5) 07/06/24 09:10 Total Hemoglobin 13.9 g/dL (14-18) L 07/06/24 09:10 Sodium 132.0 mmol/L (131-143) 07/06/24 09:10 Potassium 4.2 mmol/L (3.5-5.0) 07/06/24 09:10 Glucose 219.0 mg/dL (70-115) H 07/06/24 09:10 Ionized Calcium 1.1 mmol/L (1.1-1.4) 07/06/24 09:10 O2 Delivery Device Room air 07/06/24 09:10 FiO2 21.0 % 07/06/24 09:10 Squee[place]er And Former ID [place] 07/06/24 09:10 Sodium 134 mmol/L (136-145) L 07/10/24 04:46 Potassium 3.9 mmol/L (3.5-5.1) 07/10/24 04:46 Chloride 99 mmol/L (98-107) 07/10/24 04:46 Carbon Dioxide 24 mmol/L (22-29) 07/10/24 04:46 Anion Gap 14.9 (5-19) 07/10/24 04:46 BUN 16 mg/dL (6-20) 07/10/24 04:46 Creatinine 0.6 mg/dL (0.7-1.2) L 07/10/24 04:46 GFR Calculation 144.4 mL/min (90-130) H 07/10/24 04:46 Glucose 156 mg/dL (65-115) H 07/10/24 04:46 POC Glucose 138 mg/dL (70-110) H 07/10/24 06:12 Estimat Average Glucose 169 07/07/24 03:55 Hemoglobin A1c 7.5 % (4.0-6.0) H 07/07/24 03:55 Calculated Osmolality 282 mOsm/kg (285-295) L 07/10/24 04:46 Lactic Acid 2.5 mmol/L (0.5-2.2) H 07/06/24 08:25 Lactic Acid (Sepsis) 1.8 mmol/L (0.5-2.2) 07/06/24 11:11 Lactate 3.5 mmol/L (0.5-2.2) H 07/06/24 14:22 Calcium 8.6 mg/dL (8.5-10.5) 07/10/24 04:46 Total Bilirubin 0.3 mg/dL (0.15-1.2) 07/09/24 04:02 AST 16 U/L (0-40) 07/09/24 04:02 ALT 20 U/L (0-41) 07/09/24 04:02 Alkaline Phosphatase 79 U/L (40-130) 07/09/24 04:02 Lactate Dehydrogenase 201 U/L (135-225) 07/10/24 04:46 Troponin T Baseline 13 ng/L (0-15) 07/06/24 08:25 Troponin T 120 Minute 12.43 ng/L (0-15) 07/06/24 10:02 Delta Troponin T -0.57 ABS# (0-10) L 07/06/24 10:02 Troponin T Hi Sens 6Hr 12.93 ng/L (0-15) 07/06/24 14:22 Troponin T Hi Sens 6Hr Delta -0.07 ng/L (0-12) L 07/06/24 14:22 C-Reactive Protein 166.5 mg/L (0.0-4.9) H 07/06/24 08:25 Total Protein 6.6 g/dL (6.6-8.7) 07/09/24 04:02 Albumin 3.1 g/dL (3.5-5.2) L 07/09/24 04:02 Globulin 3.5 g/dL (1.3-4.6) 07/09/24 04:02 Triglycerides 168 mg/dL (0-150) H 07/07/24 03:55 Cholesterol 136 mg/dL (0-200) 07/07/24 03:55 LDL Cholesterol, Calc 68 mg/dL (50-129) 07/07/24 03:55 HDL Cholesterol 34 mg/dL (60-100) L 07/07/24 03:55 LDL/HDL Ratio 2.00 RATIO (0.00-3.22) 07/07/24 03:55 Cholesterol/HDL Ratio 4.00 mg/dL (1.0-5.00) 07/07/24 03:55 Procalcitonin 4.50 ng/mL (0-0.5) H 07/07/24 03:55 TSH 1.06 uIU/mL (0.27-4.20) 07/07/24 03:55 Vancomycin Trough 19.4 ug/mL (10-15) H 07/09/24 10:10 Serum Ketones Negative (Negative) 07/06/24 08:25 Coronavirus (PCR) Negative (Negative) 07/06/24 10:00 Influenza A (PCR) Negative (Negative) 07/06/24 10:00 Influenza Type B (PCR) Negative (Negative) 07/06/24 10:00 RSV (PCR) Negative (Negative) 07/06/24 10:00 Vitals Last Vital Signs Temp 98.4 F 07/10/24 11:18 Pulse 84 07/10/24 11:18 Resp 18 07/10/24 11:18 BP 155/81 07/10/24 11:18 Pulse Ox 96 07/10/24 11:18 O2 Del Method Room Air 07/10/24 11:18 Discharge Plan Discharge Patient Disposition: Home Condition: Stable Prescriptions: New benzonatate 100 mg Capsule 100 mg PO TID PRN (Reason: Cough) Qty: 30 0RF losartan 50 mg Tablet 25 mg PO DAILY Qty: 30 2RF clindamycin HCl 300 mg capsule 300 mg PO Q8H 14 Days Qty: 42 0RF levofloxacin 750 mg tablet 750 mg PO DAILY 14 Days Qty: 14 0RF albuterol sulfate 90 mcg/actuation HFA aerosol inhaler 2 inh inhalation Q8H PRN (Reason: shortness of breath or wheezing) Qty: 6.7 4RF dextromethorphan polistirex [Robitussin ER] 30 mg/5 mL suspension,extended rel 12 hr 10 ml PO Q12H Qty: 89 0RF Continued escitalopram oxalate 20 mg tablet 20 mg PO DAILY dapagliflozin propanediol 10 mg Tablet 10 mg PO DAILY Discharge Orders: Discharge Order (Routine); Ordered 07/10/24 Ordered By: Rosy Hickman Referrals: maile, pulmonology [Other] - 2 weeks (Please call [facility] pulmonology group to make an appointment You will also need another CT scan after 3 weeks of the lungs as follow-up [address] [place] [address], [address] [place] [id number] ) Discharge Diet: Diabetic Discharge Activity: Increase activity as tolerated Patient Instructions: Opioid Safety Activity Restrictions/Additional Instructions: Please take your antibiotics for 2 weeks I have called [facility] pulmonology group who would like to see you within 2 to [address] scan of lung You will need biopsy as well Please do not chew tobacco which will make your cough worse Discharge Attestations Time Spent in Discharge Care*: greater than 30 min Quality Metrics Clinical Quality Measures [ No reported AMI, CVA or VTE this stay] Coding Level of Care Code Acute Code for Chg Fwd Diagnoses Hyperglycemia R73.9 Hyponatremia E87.1 Neutrophilic leukocytosis D72.9 Sepsis with acute hypoxic respiratory failure without septic shock, due to unspecified organism A41.9; R65.20; J96.01 Sepsis type: sepsis due to unspecified organism Sepsis acute organ dysfunction status: with acute organ dysfunction Severe sepsis acute organ dysfunction type: acute respiratory failure Acute respiratory failure type: with hypoxia Severe sepsis shock status: without septic shock Community acquired pneumonia of right middle lobe of lung J18.9 Laterality: right Lung location: middle lobe of lung Abscess of middle lobe of right lung with pneumonia J85.1 Pulmonary abscess pneumonia presence: with pneumonia Laterality: right Lung location: middle lobe of lung
--- NOTE | 2024-07-10 13:34 | PC.NURSE ---
Discussed discharge with patient. Went over new medications, pneumonia stop light, follow up appointment and to call the draw string knotter to schedule appointment in 2-[address] scan which patient needs to call for that appointment as well. Release to return to work on Monday the was also given to patient. Patient verbalized understanding and ambulated out of hospital.
[2024-07-11 12:04] LABS: Methicillin-Resist S.aureu PCR NOT DETECTED (NOT DETECTED)
== END 2024-07-10 12:40 | disposition home or self-care (01) | DRG 871 ==
LOC: ER 09:11 → MEDSURG 11:16
PROVIDERS: Admitting Provider Family Medicine; Emergency Provider Family Medicine; PCP Family Medicine; Visit Provider Internal Medicine
DX: A41.9 Sepsis, unspecified organism (principal); J85.1 Abscess of lung with pneumonia; J96.01 Acute respiratory failure with hypoxia; E87.1 Hypo-osmolality and hyponatremia; J90 Pleural effusion, not elsewhere classified; R65.20 Severe sepsis without septic shock; R73.9 Hyperglycemia, unspecified; Z88.1 Allergy status to other antibiotic agents; F17.220 Nicotine dependence, chewing tobacco, uncomplicated
CPT/HCPCS: 0241U; 36415; 36416; 36600; 51798; 71045; 71260; 71275; 74177; 76604; 76705; 80048; 80051; 80053; 80061; 80202; 82009; 82330; 82805; 82962; 83036; 83605; 83615; 84145; 84443; 84484; 85025; 86140; 87040; 87070; 87205; 87641; 93005; 94640; 96365; 96367; 96372; 96375; 99285; J1650; J1815; J2270; J2405; J2470; J2543; J3370; J7030; J7050; J7512

== ENCOUNTER 2024-07-31 13:17 | Outpatient (CLI) | payer MEDICAID, SELFPAY ==
--- NOTE | 2024-07-31 13:18 | CT_ITS ---
WS: [id number] CT chest w con* [id number] HISTORY: Lung abscess TECHNIQUE: Axial imaging performed through the thorax. Coronal and sagittal reformats are submitted. All CT scans at [facility] use at least one of these dose optimization techniques: automated exposure control; mA and/or kV adjustment per patient size (includes targeted exams where dose is mat ched to clinical indication); or iterative reconstruction. CONTRAST: Omnipaque 350; 100 mL IV. DLP: 541.29 mGy.cm COMPARISON: 07/09/2024 Lungs and central airway: Significant improvement in the RIGHT middle lobe pulmonary abscess with ext ension to the pleura. The cavitary component has essentially resolved in the central abscess. The are a of consolidation and resolving abscess measures 4.8 x 2.6 x 3.1 cm. There are small air bronchogram s present in the remaining area of consolidation with mixed attenuation. Very minimal pleural fluid a t the site of the abscess. The previously described RIGHT pleural effusion and airspace disease in th e RIGHT lower lobe has completely resolved. Much better aeration bilaterally. Pleura: Resolved RIGHT pleural effusion. Heart and pericardium: Normal size heart with no pericardial effusion. Mediastinum and molly: Small mediastinal and hilar lymph nodes have slightly decreased in size since . Vessels: Normal size aortic and pulmonary artery. No coronary artery calcifications. Chest wall and lower neck: No soft tissue masses. Upper abdomen: Small hiatal hernia. Osseous structures: No destructive process. CT/CT chest w con* [id number] IMPRESSION: 1. Significant interval improvement in the RIGHT middle lobe cavitary mass whi ch was probably an abscess. Residual area of consolidation measures 4.8 x 2.6 x 3.1 cm. The cavitary component has essentially resolved. There is a small amou nt of persistent associated pleural fluid. Recommend continued follow-up to res olution to be sure there is no underlying mass. 2. Resolved RIGHT pleural effusion. 3. Overall improved aeration throughout both lungs. 4. Slight decrease in size of the mediastinal and hilar lymph nodes.
[2024-07-31] MEDS: iohexol 350 mg/mL 500 mL Btl (per mL) IV (13:50)
== END 2024-07-31 13:18 | disposition home or self-care (01) ==
LOC: RAD 13:17
PROVIDERS: PCP Family Medicine; Visit Provider Internal Medicine
DX: J85.2 Abscess of lung without pneumonia (principal)
CPT/HCPCS: 71260